=== PATIENT | male | born 1970 | race Caucasian/White ===

== ENCOUNTER 2018-05-29 19:20 | Emergency (ER) | payer MEDICAID, OTHER ==
[~2018-05-29] VITALS: Ht 185.4 cm; Wt 108.9 kg
[2018-05-29 20:07] VITALS: BP 124/52
[2018-05-29 22:30] VITALS: BP 120/88
--- NOTE | 2018-05-29 23:18 | Emergency Room Report ---
History of Present Illness General Chief Complaint: General Complaint Source: Patient, EMS Present Illness HPI 47-year-old male presents ED for evaluation. Patient sent from snf facility. Nursing staff states that patient is not eating or drinking and not taking his medications. Patient has history of paranoid schizophrenia. Upon arrival patient is not speaking. Awake alert oriented. Refusing to answer questions. No signs of suicidal or homicidal ideation. No other aggravating relieving factors. No other associated symptoms Allergies: Coded Allergies: HALOPERIDOL (Unverified Allergy, Unknown, 05/29/18) Patient History Past Medical History: psych hx Past Surgical History: none Pertinent Family History: none Social History: Denies: smoking, alcohol use, drug use Immunizations: UTD Reviewed Nursing Documentation: PMH: Agreed; PSxH: Agreed Nursing Documentation-PMH Past Medical History: No History, Except For Hx COPD: Yes - Hypothyroidism History Of Psychiatric Problem: Yes - Paranoid schizophrenia, anxiety, insomnia Hx Neurological Problems: Yes - Polyneuropathy Review of Systems All Other Systems: limited Physical Exam Vital Signs Date Time Temp Pulse Resp B/P (MAP) Pulse Ox O2 Delivery O2 Flow Rate FiO2 05/29/18 19:13 98.0 80 16 124/52 93 Room Air 98.1 Sp02 EP Interpretation: reviewed, normal General Appearance: no apparent distress, alert, GCS 15, non-toxic Head: normocephalic Eyes: bilateral eye normal inspection, bilateral eye PERRL ENT: normal ENT inspection Neck: normal inspection Respiratory: normal inspection Cardiovascular #1: normal inspection Gastrointestinal: normal inspection Rectal: deferred Genitourinary: no CVA tenderness Musculoskeletal: normal inspection Neurologic: alert, oriented x3, responsive Psychiatric: other - noncooperative Skin: normal inspection Lymphatic: normal inspection Medical Decision Making Diagnostic Impression: Primary Impression: Schizophrenia Qualified Codes: F20.9 - Schizophrenia, unspecified ER Course 47-year-old male referred to ED for evaluation of not eating or drinking. Not taking his medication. History of schizophrenia Differentialpsychosis, dehydration, failure to thrive Patient placed on stretcher. Patient refused vitals. Upon arrival patient not answering questions. Patient is alert oriented, tracking me with his eyes. His refusal to answer questions is purposeful. He is refusing physical exam, pushing me away Patient told nurse that he will not allow her to draw labs. States he is fine I explain this to PMD Dr. Streeter. Patient is not a danger to himself or others. no indication fo PET. There is no indication to restrain/sedate this patient at this time. He agrees Patient will be sent back to snf facility for proper psychiatric evaluation diagnosis schizophrenia Discharge back to snf facility Last Vital Signs Date Time Temp Pulse Resp B/P (MAP) Pulse Ox O2 Delivery O2 Flow Rate FiO2 05/29/18 20:07 98.1 80 16 124/52 93 Room Air 98.1 Status: improved Disposition: XFER SNF Condition: Stable Referrals: Horacio Streeter DO (PCP) Patient Instructions: Isidro Craig MD May 29, 2018 23:18
== END 2018-05-29 22:30 ==
LOC: EDBD 19:20 → EMR 20:00
DX: F20.0 Paranoid schizophrenia (principal); J44.9 Chronic obstructive pulmonary disease, unspecified; E03.9 Hypothyroidism, unspecified
CPT/HCPCS: 96360; 99284

== ENCOUNTER 2018-06-06 11:59 | Emergency (ER) | payer OTHER ==
[~2018-06-06] VITALS: Ht 177.8 cm; Wt 81.6 kg
--- NOTE | 2018-06-06 12:22 | Emergency Room Report ---
History of Present Illness General Chief Complaint: Behavioral Complaint Source: Medical Record, EMS Present Illness HPI Patient is sent in from [facility] with reports of noncompliance Patient has been refusing his medication Patient himself does not provide much history essentially cursing at staff and myself Patient has history of underlying psychiatric pathology as well No reports of vomiting or diarrhea from the facility No obvious reports of fevers History of present illness remains significantly limited Allergies: Coded Allergies: HALOPERIDOL (Unverified Allergy, Unknown, 05/29/18) Patient History Limited by: medical condition Past Medical History: see triage record Pertinent Family History: unable to obtain Reviewed Nursing Documentation: PMH: Agreed; PSxH: Agreed Nursing Documentation-PMH Past Medical History: No History, Except For Hx COPD: Yes - Hypothyroidism History Of Psychiatric Problem: Yes - paranoid schizophrenia, anxiety Hx Neurological Problems: Yes - Polyneuropathy Review of Systems All Other Systems: limited - Other than the ones mentioned in the history of present illness all others are reviewed however they do stay limited due to the patient's mental status Physical Exam Vital Signs Date Time Temp Pulse Resp B/P (MAP) Pulse Ox O2 Delivery O2 Flow Rate FiO2 06/06/18 12:00 74 18 100/70 97 Room Air Sp02 EP Interpretation: reviewed, normal General Appearance: no apparent distress Head: normocephalic, atraumatic Eyes: bilateral eye PERRL, bilateral eye EOMI ENT: dry mucus membranes Neck: full range of motion, supple Respiratory: chest non-tender, lungs clear Cardiovascular #1: regular rate, rhythm Gastrointestinal: normal bowel sounds, non tender, soft Genitourinary: no CVA tenderness Musculoskeletal: back normal Neurologic: alert, oriented x3 Skin: normal color, no rash Lymphatic: no adenopathy Medical Decision Making Diagnostic Impression: Primary Impression: Schizophrenia ER Course Given the patient's history and presentation initial blood work was initiated to further evaluate hydration status and electrolyte status Patient however adamantly refuses any further workup Patient is awake he refuses EKG or blood test work Contact was made with the patient's primary physician Requesting patient to transfer back to the nursing facility And further outpatient psychiatric consultation will be made on a more urgent basis Last Vital Signs Date Time Temp Pulse Resp B/P (MAP) Pulse Ox O2 Delivery O2 Flow Rate FiO2 06/06/18 12:00 74 18 100/70 97 Room Air Status: unchanged Disposition: XFER SNF Condition: Stable Referrals: [facility],REFERR[facility] (PCP) Additional Instructions: Transfer to the nursing facility with urgent psychiatric referral and consultation Lizeth Ingram DO Jun 06, 2018 12:22
[2018-06-06 12:30] VITALS: BP 108/73
[2018-06-06] MEDS ORDERED: MILK OF MA400 MG/51 ORAL (13:04)
[2018-06-06] MEDS ORDERED: ACETAMINOPHEN325 M1 ORAL (13:04)
[2018-06-06] MEDS ORDERED: BENZTROPINE ME0.5 MG PO (13:04)
[2018-06-06] MEDS ORDERED: DOCUSATE SODIU100 MG ORAL (13:04)
[2018-06-06] MEDS ORDERED: DEPAKOTE250 MG PO (13:04)
[2018-06-06] MEDS ORDERED: MULTI-VITAMIN-1 EACH PO (13:04)
[2018-06-06] MEDS ORDERED: LEVOTHYROXINE75 MCG ORAL (13:04)
[2018-06-06] MEDS ORDERED: ZYPREXA10 MG ORAL (13:05)
[2018-06-06 14:59] VITALS: BP 108/73
== END 2018-06-06 15:01 ==
LOC: EDUNIT# 11:59 → EDBD 11:59 → EMR 12:17 → CANBEDREQ 13:12 → EMR 15:01
DX: F20.9 Schizophrenia, unspecified (principal); Z91.14 Patient's other noncompliance with medication regimen; E03.9 Hypothyroidism, unspecified; F41.9 Anxiety disorder, unspecified
CPT/HCPCS: 99284